=== PATIENT | female | born 1975 | race Caucasian/White ===

== ENCOUNTER 2019-04-07 09:53 | Emergency (ER) | payer OTHER ==
[~2019-04-07] VITALS: Ht 165.1 cm; Wt 99.8 kg
[~2019-04-07 09:53] MED LIST: BENADRYL25 MG PO; EQ SINUS CONGE1 EAC1 PO; FERROUS SULFAT325 MG PO; IBUPROFEN600 MG PO; MULTI VITAMIN1 EACH PO; OMEGA 3 1,0001 EACH PO; PERCOCET 5-3251 EACH PO; TYLENOL325 MG PO; VENTOLIN HFA18 GM INH; VITAMIN C500 MG PO; ZOLOFT100 MG PO; ZOVIRAX400 MG PO
[2019-04-07] MEDS ORDERED: ONDANSETRON ODT8 MG PO (12:12)
== END 2019-04-07 12:30 | disposition home or self-care (01) ==
LOC: ED 09:53
DX: B34.9 Viral infection, unspecified (principal); F17.200 Nicotine dependence, unspecified, uncomplicated; Z88.5 Allergy status to narcotic agent
CPT/HCPCS: 80053; 85025; 96361; 96374; 96375; 99284-25; J1885; J2405; J7030

== ENCOUNTER → 2019-07-17 | Emergency (ER) | payer OTHER ==
[~2019-07-17] VITALS: Ht 165.1 cm; Wt 99.8 kg
[~2019-07-17] MED LIST changes: +ONDANSETRON ODT8 MG PO
== END ==
LOC: ED 14:28
DX: R45.851 Suicidal ideations (principal); F41.9 Anxiety disorder, unspecified; F32.9 Major depressive disorder, single episode, unspecified; F17.200 Nicotine dependence, unspecified, uncomplicated; Z88.5 Allergy status to narcotic agent
CPT/HCPCS: 80053; 80176; 81001; 84443; 84703; 85025; 99284; G0480

== ENCOUNTER 2022-03-04 23:15 | Emergency (ER) | payer OTHER ==
[~2022-03-04] VITALS: Ht 165.1 cm; Wt 110.0 kg
[2022-03-04] MEDS ORDERED: FLUOXETINE HCL10 MG (23:48)
== END 2022-03-05 02:59 | disposition home or self-care (01) ==
LOC: ED 23:15
PROC: 3E0T3BZ Introduction of Anesthetic Agent into Peripheral Nerves and Plexi, Percutaneous Approach (ICD-10-PCS; principal; 2022-03-04)
DX: M79.675 Pain in left toe(s) (principal); M79.674 Pain in right toe(s); Z88.5 Allergy status to narcotic agent; F17.200 Nicotine dependence, unspecified, uncomplicated
CPT/HCPCS: 64450; 99283-25

== ENCOUNTER 2024-03-05 11:02 | Emergency (ER) | payer OTHER ==
[~2024-03-05] VITALS: Ht 165.1 cm; Wt 105.0 kg
[~2024-03-05 11:02] MED LIST changes: +FLUOXETINE HCL10 MG
[2024-03-05] MEDS ORDERED: HYDROCODON-ACE1 EA10 PO (14:19)
[2024-03-05] MEDS ORDERED: PENICILLIN V P500 MG PO (14:19)
[2024-03-05 14:26] VITALS: BP 137/88
== END 2024-03-05 14:28 | disposition home or self-care (01) ==
LOC: ED 11:02
DX: M27.0 Developmental disorders of jaws (principal); F17.200 Nicotine dependence, unspecified, uncomplicated; Z88.5 Allergy status to narcotic agent; Z79.899 Other long term (current) drug therapy
CPT/HCPCS: 99282

== ENCOUNTER 2024-05-15 23:50 | Emergency (ER) | payer OTHER ==
[~2024-05-15] VITALS: Ht 165.1 cm; Wt 104.8 kg
[~2024-05-15 23:50] MED LIST changes: -BENADRYL25 MG PO; +DEXAMETHASONE SOD PHOS 10 MG/ML VIAL IM ONE; -EQ SINUS CONGE1 EAC1 PO; -FERROUS SULFAT325 MG PO; -FLUOXETINE HCL10 MG; -IBUPROFEN600 MG PO; +LIDOCAINE HCL 4% 5 ML AMP INH ONE; -MULTI VITAMIN1 EACH PO; -OMEGA 3 1,0001 EACH PO; -ONDANSETRON ODT8 MG PO; -PERCOCET 5-3251 EACH PO; -TYLENOL325 MG PO; -VENTOLIN HFA18 GM INH; -VITAMIN C500 MG PO; -ZOLOFT100 MG PO; -ZOVIRAX400 MG PO
[2024-05-16] MEDS ORDERED: ALBUTEROL SULFATE 8 GM HOME.PACK INH ONE (01:45)
[2024-05-16] MEDS ORDERED: INHALER, ASSIST DEVICES 1 EACH SPACER MISC ONE (01:45)
[2024-05-16 01:50] VITALS: BP 135/80
== END 2024-05-16 01:59 | disposition home or self-care (01) ==
LOC: ED 23:50
DX: T60.2X1A Toxic effect of other insecticides, accidental (unintentional), initial encounter (principal); J68.3 Other acute and subacute respiratory conditions due to chemicals, gases, fumes and vapors; F17.200 Nicotine dependence, unspecified, uncomplicated; Z88.5 Allergy status to narcotic agent; Z79.899 Other long term (current) drug therapy
CPT/HCPCS: 71045; 94640; 94664; 96372; 99284-25; J1100

== ENCOUNTER 2024-06-20 15:49 | Emergency (ER) | payer OTHER ==
[~2024-06-20] VITALS: Ht 165.1 cm; Wt 106.0 kg
[~2024-06-20 15:49] MED LIST changes: +BENADRYL25 MG PO; -DEXAMETHASONE SOD PHOS 10 MG/ML VIAL IM ONE; +EQ SINUS CONGE1 EAC1 PO; +FERROUS SULFAT325 MG PO; +FLUOXETINE HCL10 MG; +HYDROCODON-ACE1 EA10 PO; +IBUPROFEN600 MG PO; -LIDOCAINE HCL 4% 5 ML AMP INH ONE; +MULTI VITAMIN1 EACH PO; +OMEGA 3 1,0001 EACH PO; +ONDANSETRON ODT8 MG PO; +PENICILLIN V P500 MG PO; +PERCOCET 5-3251 EACH PO; +PREDNISONE20 MG PO; +TYLENOL325 MG PO; +VENTOLIN HFA18 GM INH; +VITAMIN C500 MG PO; +ZOLOFT100 MG PO; +ZOVIRAX400 MG PO; +ZYPREXA10 MG PO
[2024-06-20] MEDS ORDERED: CEPHALEXIN MONOHYDRATE 500 MG CAP PO ONE (16:30)
[2024-06-20] MEDS ORDERED: CEPHALEXIN500 M1 PO (16:50)
[2024-06-20] MEDS ORDERED: CEPHALEXIN MONOHYDRATE 500 MG HOME.PACK PO ONE (17:00)
[2024-06-20 17:09] VITALS: BP 134/79
== END 2024-06-20 17:09 | disposition home or self-care (01) ==
LOC: ED 15:49
DX: L02.212 Cutaneous abscess of back [any part, except buttock and flank] (principal); F17.200 Nicotine dependence, unspecified, uncomplicated
CPT/HCPCS: 10061; 99283-25; A9270